=== PATIENT | male | born 1955 | race Caucasian/White ===

== ENCOUNTER → 2016-08-20 | Outpatient (CLI) | payer OTHER ==
[~2016-08-20] MED LIST: ASPI81TA28 PO; DOXY-300 PO; HYDR-5688 PO; LISI-725 PO; ROSU40TA PO; SILD1TAB11 PO
[2016-08-20 10:13] LABS: BLOOD UREA NITROGEN 12 mg/dl (7-18)
== END | disposition home or self-care (01) ==
LOC: C.LAB 08:22
DX: H81.09 Meniere's disease, unspecified ear (principal); H90.41 Sensorineural hearing loss, unilateral, right ear, with unrestricted hearing on the contralateral side

== ENCOUNTER → 2016-08-22 | Outpatient (CLI) | payer OTHER ==
[~2016-08-22] MED LIST changes: +GADAVIST IV PRN
--- NOTE | 2016-08-22 10:18 | DIAGNOSTIC IMAGING REPORT ---
BRAIN COMBO FOR IAC CLINICAL HISTORY: Right-sided hearing loss. Recurrent dizziness. COMPARISON STUDY: No previous studies for comparison. TECHNIQUE: Utilizing a 0.7 Alissa open magnet, multiplanar, multiecho imaging of the brain was performed pre and postcontrast administration with thin cut imaging through the internal auditory canals. Injection of 8 cc of Gadavist IV was uneventful. FINDINGS: There are no areas of restricted diffusion. No acute intracranial hemorrhage, midline shift or mass effect is present. Brain volume is normal for age. Ventricular system is normal. Basilar cisterns are patent. There are no extra-axial collections. Flow-voids for the major intracranial vessels are present. No intracranial masses or pathologic enhancement is identified. There are no masses within the internal auditory canals or the cerebellopontine angles. Semicircular canals are intact. There is trace fluid within the inferior left mastoid air cells. Calvarial signal is maintained. Scattered white matter T2 hyperintense foci suggest minimal small vessel disease. There is minimal mucosal thickening of the ethmoid sinuses. Orbits are unremarkable. IMPRESSION: 1. No acute intracranial findings. 2. No abnormalities within the internal auditory canals. 3. Trace fluid within the left mastoid air cells. Electronically signed by: Gama Madera M.D. 08/22/2016 10:16 AM Dictated Date/Time: 08/22/2016 10:12 AM
== END | disposition home or self-care (01) ==
LOC: C.OPENMRI 08:54
DX: H91.91 Unspecified hearing loss, right ear (principal)

== ENCOUNTER → 2017-04-04 | Day surgery (SDC) | payer OTHER ==
[2017-03-19 12:20] LABS: BASO % 1.1 %; BASO ABS # 0.04 K/uL (0-0.2); COMPLETE YES; EOS % 4.8 %; HEMATOCRIT 42.7 % (42-52); IG% 0.3 %; LYMPH % 39.7 %; LYMPH ABS # 1.49 K/uL (1.2-3.4); MEAN CORPUSCULAR HGB CONC 34.4 g/dl (32-36); MEAN PLATELET VOLUME 10.3 fL (7.4-10.4); MONO % 13.6 %; NEUT % 40.5 %; PLATELET COUNT 154 K/uL (130-400); RED BLOOD COUNT 4.59 M/uL (4.7-6.1); WHITE BLOOD COUNT 3.75 K/uL (4.8-10.8)
[2017-03-19 12:36] LABS: BLOOD UREA NITROGEN 15 mg/dl (7-18); BUN/CREATININE RATIO 12.5 (10-20); CALCIUM 9.2 mg/dl (8.5-10.1); CARBON DIOXIDE 29 mmol/L (21-32); CHLORIDE 104 mmol/L (98-107); CREATININE 1.16 mg/dl (0.60-1.40); GLUCOSE 84 mg/dl (70-99); POTASSIUM 4.4 mmol/L (3.5-5.1); SODIUM 139 mmol/L (136-145)
[2017-03-25 08:03] VITALS: Ht 170.2 cm; Wt 86.4 kg
[~2017-04-04] VITALS: Ht 170.2 cm; Wt 86.4 kg
[~2017-04-04] MED LIST changes: +ATROPINE SULFATE 0.1 MG/ML 5ML SYR IV PRN; +CEFAZOLIN 2000MG IV PUSH 10 ML IV SCH; +DEXAMETHASONE SOD INJ 4 MG/ML VIAL ONE; +EpHEDrine SULFATE INJ 50 MG/ML AMP IV PRN; +EpINEphrine INJ 1MG/ML AMP 1 MG/ML AMP ONE; +FENTANYL CITRATE INJ 50 MCG/1 ML 2 ML VIAL IV PRN; +FENTANYL CITRATE INJ 50 MCG/1 ML 2 ML VIAL ONE; -GADAVIST IV PRN; +HYDROCODONE/ACETAMOPHEN 5/325MG TAB PO PRN; +KETOROLAC TROMETHAMINE 30 MG/ML VIAL ONE; +LACTATED RINGER'S 1000ML 1,000 ML IV SCH; +LIDOCAINE HCL 2% 2 ML VIAL (20MG/ML) ONE; +MIDAZOLAM HCL 1 MG/ML 2ML VIAL ONE; +ONDANSETRON INJ 2 MG/ML 2 ML VIAL IV PRN; +ONDANSETRON INJ 2 MG/ML 2 ML VIAL ONE; +PROPOFOL IV EMULSION 10 MG/ML 20 ML VIAL IV ONE; +ROPIVACAINE 0.5% 5 MG/ML 30 ML VIAL ONE; +SODIUM CHLORIDE 0.9% 1000ML 1,000 ML IV SCH
--- NOTE | 2017-04-04 08:37 | History & Physical Bridge Note ---
H&P Re-Evaluation Bridge Note: I have examined the patient, reviewed the History & Physical and in the interval since the performance of the History & Physical I have noted the following changes of clinical significance: No changes noted
--- NOTE | 2017-04-04 10:07 | [facility] Post Operative Brief Note ---
Immediate Operative Summary Operative Date Apr 04, 2017. Pre-Operative Diagnosis Left Knee Tear of Medial Cartilage and/or Meniscus Post-Operative Diagnosis same as preop Procedure(s) Performed Left Knee Arthroscopy, Partial Medial lateral Meniscectomy, Chondroplasty Surgeon Dr. Denny Varnisher Plasticoater Surgeon(s) TEZ Contreras Estimated Blood Loss 5ml Findings as above Specimens none per surgeon Complication(s) None Disposition Recovery Room / PACU
--- NOTE | 2017-04-04 10:15 | Discharge Instructions-SurgCtr ---
Discharge Instructions Date of Service Apr 04, 2017. Visit Reason for Visit: Left Knee Tear Of Medial Cartilage &/Or Meniscus, Discharge Discharge Diagnosis / Problem: SAME ABOVE Discharge Goals Goal(s): Decrease discomfort, Improve function Activity Recommendations Activity Limitations: as noted below Lifting Limitations: gradually increase as tolerated Exercise/Sports Limitations: gradually increase as tolerated Shower/Bathe: tomorrow Anesthesia . Post Anesthesia Instructions: If you have had General Anesthesia or IV Sedation: * Do not drive today. * Resume driving when surgeon permits. * Do not make important decisions or sign legal documents today. * Call surgeon for: 1. Temperature elevations greater than 101 degrees F. 2. Uncontrollable pain. 3. Excessive bleeding. 4. Persistent nausea and vomiting. 5. Medication intolerance (nausea, vomiting or rash). * For nausea and vomiting use only clear liquids such as: tea, soda, bouillon until nausea subsides, then gradually increase diet as tolerated. * If you have any concerns or questions, call your surgeon's office. If physician is unavailable and it is an emergency, call 911 or go to the nearest emergency room. . Instructions / Follow-Up Instructions / Follow-Up MEDICATIONS: * Resume previous medications unless instructed otherwise by your surgeon. * Always take pain medication on a full stomach or with food to avoid upset stomach. * Do not drink alcohol or drive while taking narcotics. * Ibuprofen or Tylenol may be taken if narcotic not needed. SPECIAL CARE INSTRUCTIONS: __ None _X_ Keep extremity elevated and iced x 48 hours; apply ice 20-30 minutes 8-10 times/day. May remove at night. _X_ Crutches (IF HE DOES NOT HAVE THEM HE DOES NOT NEED THEM) _X_ May discard when able __ Brace/Post-op shoe __ 24 hrs/day __ Remove at night _X_ Dressing __ Maintain until seen in office, may shower with plastic over site _X_ Remove dressings in 24-48 hours and then may shower _X_ Cover incisions with band-aids after showering __ Do not remove steri-strips Call physician if chills or temperature rises above 102 degrees or pain unrelieved by prescribed pain medications. Office [phone] Diet Recommendations Home Diet: no limitations Fluid Restriction: None Procedures Procedures Performed: Left Knee Arthroscopy, Partial Medial lateral Meniscectomy, Chondroplasty Pending Studies Studies pending at discharge: no Work Instructions Return To Work: after follow-up Medical Emergencies . Who to Call and When: Medical Emergencies: If at any time you feel your situation is an emergency, please call 911 immediately. . Non-Emergent Contact Non-Emergency issues call your: Primary Care Provider Call Non-Emergent contact if: you have a fever, temperature is above 101.5 . . "Provider Documentation" section prepared by Ghulam Ferraro. .
--- NOTE | 2017-04-04 10:33 | OPERATIVE REPORT ---
DATE OF OPERATION: 04/04/2017 PREOPERATIVE DIAGNOSIS: Recurrent left medial meniscus tear. 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 PROCEDURE: Left knee arthroscopy with chondroplasty, partial medial and lateral meniscectomy. SURGEON: Dr. Jimmie Denny. TUTOR: Julio Ferraro PA-C, whose assistance was necessary for positioning of the knee and helping with closure and instrumentation. ANESTHESIA: General. COMPLICATIONS: None. CONDITION: Stable to PACU. INDICATIONS: Solitario is a pleasant 62-year-old male who had his knee scoped in 2009 at [facility]. He had a meniscus tear at that time. Unfortunately, he has had a recurrence of medial sided knee pain. Repeat MRI and clinical examination were diagnostic for medial meniscus tear. After failing conservative treatment, he elected to undergo arthroscopy. OPERATION AND FINDINGS: On 04/04/2017 he arrived at [facility] for the above procedure. He was seen in the preoperative holding area and the operative extremity was identified and signed. Given her parents antibiotic and taken back to the operating room, laid on the table in supine position and put under general anesthesia. The left knee was then prepped and draped in sterile fashion. Time-out was done and the patient and operative extremity was properly identified. A scope was placed in lateral parapatellar portal. Diagnostic arthroscopy showed a couple small chondral loose bodies in the suprapatellar pouch. There was some fissuring on the undersurface of the patella. The trochlea looked okay. The scope was brought into the medial compartment. There was some grade 3 and 4 chondral changes off the distal medial femoral condyle. A medial parapatellar portal was made under direct visualization. A probe was used to probe the medial meniscus. There was a radial tear in the posterior body of the medial meniscus. It involved about 75% of the meniscus. A shaver and ablator were used to remove the meniscal flaps and get this meniscus back to stable margins. A shaver was used to remove any excess debris and to smooth out the meniscus. A probe was used to probe the medial meniscus and it seemed stable. The scope was brought into the trochlea. ACL and PCL were intact. The scope was brought into the lateral compartment. There was some tearing of the mid body of the lateral meniscus. A shaver and ablator were used to remove the torn portions of the meniscus. Pictures were taken. The scope was then placed in the medial parapatellar portal. Repeat diagnostic arthroscopy showed no additional pathology. The knee was irrigated and a shaver was used to complete a chondroplasty of any loose cartilaginous fragments off the distal medial femoral condyle and on the undersurface of the patella. Arthroscopic instruments were removed from the knee. Portal sites were closed with 3-0 nylon. The knee was then injected with 30 mL of ropivacaine with epinephrine and Toradol. He was then placed in a soft compressive dressing, extubated, and taken to the postanesthesia care unit in stable condition. He tolerated the procedure well. I attest to the content of the Intraoperative Record and any orders documented therein. Any exception s are noted below.
[2017-04-04 10:53] VITALS: TEMP 36.8
[2017-04-04 11:30] VITALS: BP 139/86; PULSE 81; O2SAT 98
--- NOTE | 2017-04-04 11:41 | Anesthesia Progress Nt - [facility] ---
Anesthesia Post Op Note Date & Time Apr 04, 2017 at 11:41 Vital Signs Pain Intensity: 0 Vital Signs Past 12 Hours Date Time Temp Pulse Resp B/P (MAP) Pulse Ox O2 Delivery O2 Flow Rate FiO2 04/04/17 10:53 36.8 74 18 147/103 (118) 99 Room Air 04/04/17 10:46 153/83 04/04/17 10:45 77 18 99 04/04/17 10:45 77 18 04/04/17 10:43 36.5 76 18 153/83 98 Room Air 04/04/17 10:40 76 18 04/04/17 10:40 74 18 139/94 99 04/04/17 10:35 81 19 04/04/17 10:35 81 19 141/114 99 04/04/17 10:31 149/103 04/04/17 10:30 79 16 100 04/04/17 10:30 82 16 04/04/17 10:25 82 13 04/04/17 10:25 81 13 134/92 100 04/04/17 10:23 137/95 04/04/17 10:21 81/71 04/04/17 10:20 89 14 04/04/17 10:20 89 14 100 04/04/17 10:15 92 12 04/04/17 10:15 36.1 88 16 143/86 100 Mask 6 88 04/04/17 10:15 93 12 143/86 100 04/04/17 08:40 36.9 81 18 163/108 (126) 94 Room Air Notes Mental Status: alert / awake / arousable, participated in evaluation Pt Amnestic to Procedure: Yes Nausea / Vomiting: adequately controlled Pain: adequately controlled Airway Patency, RR, SpO2: stable & adequate BP & HR: stable & adequate Hydration State: stable & adequate Anesthetic Complications: no major complications apparent
--- NOTE | 2017-04-09 12:21 | EDITING REQUIRED CODING QUERY ---
MENISCUS TEAR To promote full compliance with coding requirements relating to patient care physician participation is requested in all cases of icd 9 coder uncertainty. Please assist us with the question(s) below: Please specify the type of Meniscus Tear by placing an "X" within the parenthesis (). If other please document type. (X ) Current Injury ( ) Old Injury ( ) Other: (Please Specify) Thank you Yolande Gonsalves
== END | disposition home or self-care (01) ==
LOC: X.SURG 08:23
PROVIDERS: ATTEND Orthopaedic Surgery
DX: S83.242A Other tear of medial meniscus, current injury, left knee, initial encounter (principal); X58.XXXA Exposure to other specified factors, initial encounter; I25.10 Atherosclerotic heart disease of native coronary artery without angina pectoris; I10 Essential (primary) hypertension; Z98.890 Other specified postprocedural states; Z82.49 Family history of ischemic heart disease and other diseases of the circulatory system